=== PATIENT | female | born 1955 | race Caucasian/White ===

== ENCOUNTER 2016-10-18 07:37 | Emergency (ER) | payer OTHER ==
[2011-08-25 15:26] VITALS: BMI 40.7
== END 2016-10-18 08:50 | disposition home or self-care (01) ==
LOC: D.ER 07:37
DX: M54.5 Low back pain (principal); I10 Essential (primary) hypertension

== ENCOUNTER 2016-11-10 16:58 | Emergency (ER) | payer OTHER ==
[2011-08-25 15:26] VITALS: BMI 40.7
[2016-11-10 19:07] LABS: APPEARANCE CLEAR (CLEAR); BILIRUBIN NEGATIVE (NEGATIVE); COLOR YELLOW (YELLOW); GLUCOSE NEGATIVE (NEGATIVE); KETONE NEGATIVE (NEGATIVE); LEUKOCYTE ESTERASE NEGATIVE (NEGATIVE); NITRITE NEGATIVE (NEGATIVE); PROTEIN NEGATIVE (NEGATIVE); SPECIFIC GRAVITY 1.015 (1.005-1.020); UROBILINOGEN NORMAL (NORMAL)
== END 2016-11-10 21:58 | disposition home or self-care (01) ==
LOC: D.ER 16:58
PROVIDERS: Emergency Medicine
DX: M54.40 Lumbago with sciatica, unspecified side (principal); S39.012A Strain of muscle, fascia and tendon of lower back, initial encounter; X58.XXXA Exposure to other specified factors, initial encounter; R11.2 Nausea with vomiting, unspecified; I10 Essential (primary) hypertension

== ENCOUNTER → 2017-12-26 13:05 | Outpatient (CLI) | payer MEDICAID ==
[2011-08-25 15:26] VITALS: BMI 40.7
== END | disposition home or self-care (01) ==
LOC: D.RAD 13:05
DX: M25.511 Pain in right shoulder (principal)

== ENCOUNTER 2018-03-21 21:06 | Inpatient (IN) | payer MEDICAID ==
[~2018-03-21] VITALS: Ht 162.6 cm; Wt 108.9 kg
--- NOTE | ~2018-03-21 | MORECARE ---
CASE MANAGEMENT DISCHARGE SUMMARY PATIENT: JUJU LIANG UNIT: [id number] ADM DATE: 03/21/18 AGE: 62 : 59 SEX: F ROOM/BED: D.2227 AUTHOR: RAINDOC PHYSICIAN: REFERRING PHYSICIAN: KRISTEN DURON MD DATE OF SERVICE: 03/23/18 Discharge Plan Patient Name: JUJU LIANG Facility: [facility]:[place] : 1955 Planned Disposition: Home Anticipated Discharge Date: Discharge Date: Expected LOS: Initial Reviewer: [email or web address] Initial Review Date: 03/23/2018 Generated: 03/23/18 10:03 am Comments DCP- Discharge Planning Updated by [email or web address]: Kamilla Groves on 03/23/18 8:[address] Patient Name: JUJU LIANG Admission Status: ER Accout number: [id number] Admission Date: 03-21-2018 : 1955 Admission Diagnosis: Attending: KRISTEN DURON Current LOS: 2 Anticipated DC Date: Planned Disposition: Home Primary Insurance: MEDICAID [place] Discharge Planning Comments: CM met with patient to discuss discharge planning, she is alone in the room. States she lives with her 15 year old grandson. States his father is watching him while she is in the hospital. States her best friend, Yo, will take her home on discharge. States she is independent with all ADL's and IADL's. States she does not need home health. I encouraged outpatient counseling for newly diagnosed diabetes. She states her mom was a diabetic and she knows how to take her blood sugar and give insulin. 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 I did tell her she needed a RX for her glucometer and strips or she could get a kit at [facility] for 4 dollars or [facility] for 11 dollars. She denies needs at this time. CM will continue to follow and assist with discharge planning/needs. Inflated Ball Molder: Kamilla Groves DCPIA - Discharge Planning Initial Assessment Updated by [email or web address]: Kamilla Groves on 03/23/18 8:48 am * Is the patient Alert and Oriented? Yes * PCP Matt. P[facility] at [facility] * Pharmacy [facility] in [place] * Preadmission Environment Home with Family * ADLs Independent * Equipment None * List name and contact numbers for known caregivers / representatives who currently or will assist patient after discharge: Yo page - [phone] * Verbal permission to speak to the caregivers and representatives has been obtained from the patient. Yes * Community resources currently utilized None * Additional services required to return to the preadmission environment? No * Can the patient safely return to the preadmission environment? Yes * Has this patient been hospitalized within the prior 30 days at any hospital? No Last DP export: 03/23/18 7:49 Patient Name: JUJU LIANG Page [id number] at 0904 All edits/amendments must be made on the electronic document DICTATION DATE: 03/23/18902 SAP PORTAL ARCHITECT: ISHAAN 03/23/18902 RPT#: [id number] DC DATE: STATUS: ADM IN [facility] [address] [place] [address] END OF REPORT
--- NOTE | ~2018-03-21 | MORECARE ---
CASE MANAGEMENT DISCHARGE SUMMARY PATIENT: JUJU LIANG UNIT: [id number] ADM DATE: 03/21/18 AGE: 62 : 59 SEX: F ROOM/BED: D.2227 AUTHOR: JOE RODRIGEZ PHYSICIAN: REFERRING PHYSICIAN: KRISTEN DURON MD DATE OF SERVICE: 03/23/18 Discharge Plan Patient Name: JUJU LIANG [facility] [facility] 1955 Planned Disposition: Home Anticipated Discharge Date: Discharge Date: Expected LOS: Initial Reviewer: [email or web address] Initial Review Date: 03/23/2018 Generated: 03/23/18 9:49 am DCPIA - Discharge Planning Initial Assessment Updated by [email or web address]: Kamilla Groves on 03/23/18 8:48 am * Is the patient Alert and Oriented? Yes * PCP Matt. [facility] at [facility] * Pharmacy [facility] in [place] * Preadmission Environment Home with Family * ADLs Independent * Equipment None * List name and contact numbers for known caregivers / representatives who currently or will assist patient after discharge: [facility] - [phone] * Verbal permission to speak to the caregivers and representatives has been obtained from the patient. Yes * Community resources currently utilized None * Additional services required to return to the preadmission environment? No * Can the patient safely return to the preadmission environment? Yes * Has this patient been hospitalized within the prior 30 days at any hospital? No Last DP export: 03/23/18 7:42 Patient Name: JUJU LIANG Page [id number] at 0849 All edits/amendments must be made on the electronic document DICTATION DATE: 03/23/18847 HOOKING MACHINE OPERATOR: ISHAAN 03/23/18847 RPT#: [id number] DC DATE: STATUS: ADM IN [facility] [address] [place] [address] END OF REPORT
--- NOTE | ~2018-03-21 | MORECARE ---
CASE MANAGEMENT DISCHARGE SUMMARY PATIENT: JUJU LIANG UNIT: [id number] ADM DATE: 03/21/18 AGE: 62 : 59 SEX: F ROOM/BED: D.2227 AUTHOR: RAINDOC PHYSICIAN: REFERRING PHYSICIAN: KRISTEN DURON MD DATE OF SERVICE: 03/26/18 Discharge Plan Patient Name: JUJU LIANG Facility: [facility]:[place] : 1955 Planned Disposition: Home Anticipated Discharge Date: Discharge Date: 03/24/2018 Expected LOS: 0 Initial Reviewer: [email or web address] Initial Review Date: 03/23/2018 Generated: 03/26/18 3:46 pm Comments DCP- Discharge Planning Updated by [email or web address]: Kamilla Groves on 03/23/18 8:[address] Patient Name: JUJU LIANG Admission Status: ER Accout number: [id number] Admission Date: 03-21-2018 : 1955 Admission Diagnosis: Attending: KRISTEN DURON Current LOS: 2 Anticipated DC Date: Planned Disposition: Home Primary Insurance: MEDICAID [place] Discharge Planning Comments: CM met with patient to discuss discharge planning, she is alone in the room. States she lives with her 15 year old grandson. States his father is watching him while she is in the hospital. States her best friend, Yo, will take her home on discharge. States she is independent with all ADL's and IADL's. States she does not need home health. I encouraged outpatient counseling for newly diagnosed diabetes. She states her mom was a diabetic and she knows how to take her blood sugar and give insulin. 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 I did tell her she needed a RX for her glucometer and strips or she could get a kit at [facility] for 4 dollars or [facility] for 11 dollars. She denies needs at this time. CM will continue to follow and assist with discharge planning/needs. Insole Taper: Kamilla Groves DCPIA - Discharge Planning Initial Assessment Updated by [email or web address]: Kamilla Groves on 03/23/18 8:48 am * Is the patient Alert and Oriented? Yes * PCP Matt. PITTS at [facility] * Pharmacy [facility] in [place] * Preadmission Environment Home with Family * ADLs Independent * Equipment None * List name and contact numbers for known caregivers / representatives who currently or will assist patient after discharge: Yo page - [phone] * Verbal permission to speak to the caregivers and representatives has been obtained from the patient. Yes * Community resources currently utilized None * Additional services required to return to the preadmission environment? No * Can the patient safely return to the preadmission environment? Yes * Has this patient been hospitalized within the prior 30 days at any hospital? No Last DP export: 03/23/18 8:04 Patient Name: JUJU LIANG Page [id number] at 1447 All edits/amendments must be made on the electronic document DICTATION DATE: 03/26/181445 ORGAN FIXER: ISHAAN 03/26/186 RPT#: [id number] DC DATE:03/24/18 STATUS: DIS IN [facility] [address] [place] [address] END OF REPORT
--- NOTE | ~2018-03-21 | MORECARE ---
CASE MANAGEMENT DISCHARGE SUMMARY PATIENT: JUJU LIANG UNIT: [id number] ADM DATE: 03/21/18 AGE: 62 : 59 SEX: F ROOM/BED: D.2227 AUTHOR: JOE RODRIGEZ PHYSICIAN: REFERRING PHYSICIAN: KRISTEN DURON MD DATE OF SERVICE: 03/23/18 Discharge Plan Patient Name: JUJU LIANG Facility: [facility]:[place] : 1955 Planned Disposition: Home Anticipated Discharge Date: Discharge Date: Expected LOS: Initial Reviewer: [email or web address] Initial Review Date: 03/23/2018 Generated: 03/23/18 9:42 am Patient Name: JUJU LIANG Page [id number] at 0842 All edits/amendments must be made on the electronic document DICTATION DATE: 03/23/18841 SERVICE SPRINKLER HELPER: ISHAAN 03/23/18 0842 RPT#: [id number] DC DATE: STATUS: ADM IN [facility] [address] [place] [address] END OF REPORT
[2018-03-21 22:25] LABS: BASOPHILS 0.2 % (0-2); EOSINOPHILS 0.2 % (0-7); HEMATOCRIT 36.5 % (36.0-48.0); HEMOGLOBIN 11.8 g/dL (12-16); IMMATURE GRANULOCYTES 0.5 % (0-5); LYMPHOCYTES 9.7 % (15-50); MCH 28.8 pg (26.0-34.0); MCHC 32.3 g/dL (31.0-37.0); MEAN PLATELET VOLUME 10.8 fL (7.4-10.4); MONOCYTES 7.4 % (2-11); WBC 12.2 10x3/uL (4.8-10.8)
[2018-03-21 22:27] LABS: PLATELET COUNT 194 10x3/uL (130-400)
[2018-03-21 22:44] LABS: ALBUMIN 3.2 g/dL (3.4-5.0); ANION GAP 18.2 mmol/L (8-16); BILIRUBIN - TOTAL 0.52 mg/dL (0.2-1.3); CALCIUM 9.3 mg/dL (8.5-10.1); CARBON DIOXIDE 27.7 mmol/L (21.0-32.0); CREATININE - SERUM 1.8 mg/dL (0.6-1.3); POTASSIUM - SERUM 4.9 mmol/L (3.5-5.1); PROTEIN - SERUM 7.8 g/dL (6.4-8.2)
[2018-03-21 23:41] LABS: APPEARANCE HAZY (CLEAR); BILIRUBIN NEGATIVE (NEGATIVE); COLOR DY (YELLOW); GLUCOSE NEGATIVE (NEGATIVE); KETONE NEGATIVE (NEGATIVE); NITRITE NEGATIVE (NEGATIVE); PROTEIN 1+ mg/dL (NEGATIVE); UROBILINOGEN NORMAL (NORMAL)
[2018-03-21 23:43] LABS: BACTERIA MODERATE /hpf (NONE SEEN); EPITHELIAL CELLS 0-5 /hpf (0-5); RED CELLS - URINE 0-5 /hpf (0-5)
[2018-03-22] VITALS (7 sets, daily range): BP systolic 100–136; BP diastolic 49–75; Ht 162.6 cm; Wt 108.9 kg
[2018-03-22 04:36] LABS: BASOPHILS 0.1 % (0-2); EOSINOPHILS 0.1 % (0-7); HEMOGLOBIN 11.3 g/dL (12-16); IMMATURE GRANULOCYTES 0.8 % (0-5); LYMPHOCYTES 6.3 % (15-50); MCH 28.6 pg (26.0-34.0); MCHC 32.3 g/dL (31.0-37.0); MCV 88.6 fL (80.0-100.0); MEAN PLATELET VOLUME 10.7 fL (7.4-10.4); MONOCYTES 0.9 % (2-11); NEUTROPHILS 91.8 % (40-80); PLATELET COUNT 215 10x3/uL (130-400); RBC 3.95 10x6/uL (4.00-5.40); RDW 15.2 % (11.5-14.5)
[2018-03-22 04:41] LABS: WBC 8.9 10x3/uL (4.8-10.8)
[2018-03-22 04:55] LABS: ANION GAP 18.4 mmol/L (8-16); CALCIUM 8.3 mg/dL (8.5-10.1); CARBON DIOXIDE 23.4 mmol/L (21.0-32.0); POTASSIUM - SERUM 4.8 mmol/L (3.5-5.1)
[2018-03-22 05:12] LABS: CREATININE - SERUM 2.6 mg/dL (0.6-1.3)
[2018-03-22 14:42] LABS: % SATURATION 12 % (15-55); IRON 34 ug/dl (35-150); TOTAL IRON BIND CAPACITY 281 ug/dl (260-445); UNSAT IRON BIND CAPACITY 247 ug/dl (150-375)
[2018-03-23 01:03] VITALS: BP 130/59
[2018-03-23 04:39] VITALS: BP 117/62
[2018-03-23 05:54] LABS: BASOPHILS 0 % (0-2); EOSINOPHILS 0.2 % (0-7); HEMATOCRIT 32.3 % (36.0-48.0); HEMOGLOBIN 10.3 g/dL (12-16); IMMATURE GRANULOCYTES 0.4 % (0-5); LYMPHOCYTES 14.9 % (15-50); MCH 27.9 pg (26.0-34.0); MCHC 31.9 g/dL (31.0-37.0); MCV 87.5 fL (80.0-100.0); MEAN PLATELET VOLUME 10.1 fL (7.4-10.4); MONOCYTES 4.6 % (2-11); NEUTROPHILS 79.9 % (40-80); PLATELET COUNT 226 10x3/uL (130-400); RBC 3.69 10x6/uL (4.00-5.40); RDW 15.4 % (11.5-14.5); WBC 8.6 10x3/uL (4.8-10.8)
[2018-03-23 06:14] LABS: ANION GAP 13.4 mmol/L (8-16); CALCIUM 8.3 mg/dL (8.5-10.1); CREATININE - SERUM 1.5 mg/dL (0.6-1.3); POTASSIUM - SERUM 4.4 mmol/L (3.5-5.1)
[2018-03-23 08:19] LABS: FOLATE (FOLIC ACID) - SERUM 17.7 ng/mL (>3.0)
[2018-03-23 08:34] VITALS: BP 140/82
[2018-03-23 12:34] VITALS: BP 148/92
[2018-03-23 16:34] VITALS: BP 137/89
[2018-03-23 21:33] VITALS: BP 151/65
[2018-03-24 04:40] VITALS: BP 160/74
[2018-03-24 06:51] LABS: BASOPHILS 0 % (0-2); EOSINOPHILS 0.3 % (0-7); HEMATOCRIT 33.6 % (36.0-48.0); HEMOGLOBIN 10.8 g/dL (12-16); IMMATURE GRANULOCYTES 0.3 % (0-5); LYMPHOCYTES 22.4 % (15-50); MCH 28.7 pg (26.0-34.0); MCHC 32.1 g/dL (31.0-37.0); MCV 89.4 fL (80.0-100.0); MEAN PLATELET VOLUME 10.4 fL (7.4-10.4); MONOCYTES 7.1 % (2-11); NEUTROPHILS 69.9 % (40-80); PLATELET COUNT 254 10x3/uL (130-400); RBC 3.76 10x6/uL (4.00-5.40); RDW 15.6 % (11.5-14.5)
[2018-03-24 06:56] LABS: WBC 6.1 10x3/uL (4.8-10.8)
[2018-03-24 07:00] VITALS: BP 147/76
[2018-03-24 07:16] LABS: ANION GAP 13.9 mmol/L (8-16); CALCIUM 9.1 mg/dL (8.5-10.1); CARBON DIOXIDE 26.5 mmol/L (21.0-32.0); POTASSIUM - SERUM 4.4 mmol/L (3.5-5.1)
[2018-03-24 07:17] LABS: CREATININE - SERUM 1.1 mg/dL (0.6-1.3)
[2018-03-24 12:16] VITALS: BP 176/82
[2018-03-24] MEDS ORDERED: LEVAQUIN750 MG PO (13:34)
[2018-03-24] MEDS ORDERED: TAMIFLU75 MG PO (13:34)
== END 2018-03-24 18:01 | disposition home or self-care (01) | DRG 871 ==
LOC: D.ER 21:06 → D.EDHOLD 23:12 → D.MS 23:12
PROVIDERS: Family Medicine; Internal Medicine Nephrology
DX: A41.9 Sepsis, unspecified organism (principal); J10.00 Influenza due to other identified influenza virus with unspecified type of pneumonia; N17.9 Acute kidney failure, unspecified; N39.0 Urinary tract infection, site not specified; E86.0 Dehydration; G89.4 Chronic pain syndrome; I10 Essential (primary) hypertension; J44.9 Chronic obstructive pulmonary disease, unspecified; K21.9 Gastro-esophageal reflux disease without esophagitis; F41.9 Anxiety disorder, unspecified

== ENCOUNTER → 2018-07-19 13:27 | Outpatient (CLI) | payer MEDICAID ==
[2018-03-22 12:44] VITALS: BMI 41.2
[~2018-07-19 13:27] MED LIST: LEVAQUIN750 MG PO; TAMIFLU75 MG PO
== END | disposition home or self-care (01) ==
LOC: D.RAD 13:27
DX: M46.87 Other specified inflammatory spondylopathies, lumbosacral region (principal); M47.897 Other spondylosis, lumbosacral region; M46.82 Other specified inflammatory spondylopathies, cervical region; M47.892 Other spondylosis, cervical region; G89.4 Chronic pain syndrome; Z79.899 Other long term (current) drug therapy; Z79.891 Long term (current) use of opiate analgesic